=== PATIENT | female | born 1955 | race Caucasian/White ===

== ENCOUNTER 2021-03-18 12:28 | Emergency (ER) | payer BC ==
[~2021-03-18] VITALS: Ht 160 cm; Wt 57.7 kg
[2021-03-18 12:32] VITALS: TEMP 97.9
[2021-03-18] MEDS ORDERED: MOTRIN 800800 MG/TAB PO (13:06)
[2021-03-18] MEDS ORDERED: FLEXERIL 1010 MG/TAB PO (13:06)
[2021-03-18] MEDS ORDERED: NORCO 325 MG-51 TAB PO ×2 (13:06→14:09)
[2021-03-18 14:00] VITALS: BP 174/79; PULSE 79
== END 2021-03-18 14:15 | disposition home or self-care (01) ==
LOC: COL.ER 12:28
DX: M54.5 Low back pain (principal)